=== PATIENT | female | born 1995 | race Caucasian/White ===

== ENCOUNTER → 2017-07-17 15:49 | Observation (INO) ==
--- NOTE | 2017-07-17 14:25 | OB/GYN Progress Note ---
Date of Encounter: 07/17/17 Time of Encounter: 14:40 - Assessment and Plan (1) Uterine contractions during Current Visit: Yes Status: Acute Plan: - Urine tox negative - NST monitoring - encourage hydration - labor evaluation, negative. Cervix FT thick and high, negative pooling, irregular contractions 10-20 minutes apart - education about sexual intercourse causing uterine irritability and vaginal streaking - appt made for visit 07/09 as patient is transferring to [facility] Discussed with Brandy Huang. Pt safe for discharge home, with labor precautions , when to return to triage or call provider. Pt verbalizes understanding. (2) NST (non-stress test) reactive Current Visit: Yes Status: Acute (3) 38 weeks gestation of Current Visit: Yes Status: Acute Subjective - Subjective Principal diagnosis: contractions Interval history: Sabrina is a 22 y/o female at 38 weeks with no complications presented to labor and delivery for contractions. Patient states contractions began at 2am this morning with frequency about 10-20 minutes apart. Patient did have intercourse last night and contractions began. She saw some bloody streaking this morning, no clots. Admits to some nausea. She denies being dehydrated, HAs, vomiting, changes in vision, leaking of fluid. Admits to 3 cig/ d. Normal movement. Antepartum ROS: vaginal bleeding, movement normal, contractions, no loss of fluid Objective - Vital Signs Vital Signs: Intake and Output 07/16/17 07/17/17 07/17/17 23:59 07:59 15:59 Other: Weight 90.6 kg Patient Weight 07/17/17 23:59 Weight 90.6 kg - Exam FHR: category 1 Auscultation: bilateral: normal Abdomen: Present: normal appearance, soft, gravid Uterus: Present: normal. Absent: firm, tenderness Cervical dilation: FT Cervix effacement: thick station: high Comments: Sterile speculum exam: negative for pooling, no source of bleeding
[2017-07-17 14:37] LABS: Amphetamine Screen,Urine Negative ng/mL (Cutoff=1000); Barbiturate Screen,Urine Negative ng/mL (Cutoff=200); Benzodiazepines Screen,Urine Negative ng/mL (Cutoff=200); Cannabinoid Screen,Urine Negative ng/mL (Cutoff = 50); Cocaine Screen,Urine Negative ng/mL (Cutoff= 300); Opiate Screen,Urine Negative ng/mL (Cutoff=300); Phencyclidine Screen,Urine Negative ng/mL (Cutoff=25)
== END | disposition home or self-care (01) ==
LOC: 1NENULAB

== ENCOUNTER 2017-07-20 12:09 | Inpatient (IN) ==
[2017-07-20] MEDS ORDERED: Oxytocin 20 units/ LR 1000 mL 20 UNIT/1,000 ML BAG IVC ONE (12:30)
[2017-07-20] MEDS ORDERED: Naloxone 0.4 MG/ML INJ IVP PRN ×2 (12:49→13:10)
[2017-07-20 13:10] LABS: Basophils # 0.1 K/mcL (0.0-0.2); Basophils % 0.3 %; Eosinophils # 0.1 K/mcL (0.0-0.6); Eosinophils % 0.4 %; Hematocrit 37.1 % (35.3-44.9); Hemoglobin 12.3 g/dL (11.5-15.4); Immature Granulocytes % 0.5 % (0-4); Immature Platelets 11.6 % (1.1-6.1); Lymphocytes % 20.8 %; Mean Corpuscular HGB Conc 33.2 g/dL (31.6-35.5); Mean Corpuscular Volume 90.5 fL (83.0-100.0); Mean Platelet Volume 12.2 fL (9.4-12.4); Monocytes # 0.6 K/mcL (0.0-1.3); Monocytes % 4.5 %; Neutrophils # 10.6 K/mcL (1.6-8.9); Platelet Count 233 K/mcL (140-400); Red Cell Distribution Width 13.7 % (11.5-14.5); Segmented Neutrophils % 73.5 %
[2017-07-20] MEDS ORDERED: Acetaminophen 325 MG TABLET PO PRN (13:10)
[2017-07-20] MEDS ORDERED: Oxytocin 20 units/ LR 1000 mL 20 UNIT/1,000 ML BAG IVC SCH (13:10)
--- NOTE | 2017-07-20 13:10 | OB/GYN History & Physical ---
Date of Encounter: 07/20/17 Time of Encounter: 12:42 Assessment and Plan (1) Uterine contractions Current visit: Yes Status: Acute Regular uterine contractions with SROM at 0900 today Admit to L&D Cervix 9cm per nursing GBS status unknown - swab obtained one day ago in office. Not enough time for PCN prophylaxis before delivery (2) 38 weeks gestation of Current visit: No Status: Acute History of Present Illness Chief complaint: Loss of Fluid HPI: Ms. Baez is a 22 year old female at 38w5d presenting to L&D with SROM at 0900 and regular uterine contractions. She reports good movement. Denies vaginal bleeding or vaginal discharge. This has been complicated by tobacco use. Denies other medical history. Denies other symptoms. She received part of her care in [place]. Blood type AB+ GBS unknown Rubella Immune Varicella Immune All other serologies Past Med Surg Social Fam HX - Past Medical History Medical history: no medical history Psychiatric history: no psych history - Past Surgical History Surgical History: no surgical history - Social History Smoking Status: Current some day smoker Packs per day: 0.5 Smokeless Tobacco Status: No Alcohol use: none Drug use: none - Family History Mother Adopted: No Family Member Ethnicity: Non- Living Status: Still Living Hx Family Cardiac Disorders: No Hx Family Respiratory Disorders: No Hx Family Cancer: No Hx Family GI Disorders: No Hx Family Endocrine Disorder: No Hx Family Neuromuscular Disorders: Yes (epilepsy) Hx Family Neurologic Disorders: No Hx Family HEENT Disorders: No Hx Family Autoimmune Disorders: No Hx Family Medical Disorders: Yes (seizures) Obstetrical History - Pregnancies : 3 Para: 2 Term: 1 : 1 Ab's: 0 Livin Medications and Allergies Tablet 1 tab PO DAILY 07/17/17 [History] 3 Allergy/AdvReac Type Severity Reaction Status Date / Time No Known Allergies Allergy Verified 07/06/15 00:58 Review of System OB All systems PM: reviewed and no additional remarkable complaints except as stated Exam - Constitutional Constitutional: well developed, well nourished, no acute distress - HEENT HEENT: Normocephaly, Mucus Membranes Moist - Abdomen Abdomen: Present: bowel sounds normal, gravid, non tender - Extremities Extremities exam: normal capillary refill, normal inspection - Vulva Vulva: bilateral: normal - Vagina Vagina: Present: normal moisture - Cervix Dilation: 9 (per nursing) - Uterus Uterus exam: Present: normal size, normal contour - Anus/Rectum Anus/Rectum: Present: normal perianal skin Results Result Diagrams: 07/20/17 12:50 All other labs normal. - VTE Reasons for not Prescribing Prophylaxis: Treatment not Indicated - Low risk for VTE - Attending Attestation I examined this patient and my medical decision-making was reviewed with the Resident Physician. I agree with the documented findings, disposition and treatment plan as described. Jesús Huang CNM
--- NOTE | 2017-07-20 13:10 | OB/GYN Procedure Note ---
Delivery - Delivery Date: 07/20/17 Provider: Elenita Huang (Assisted by Trenton Ferreira DO PGY-1) Intrapartum events: precipitous labor- <3hr Delivery induction: none Delivery monitor: external FHT, external uterine Anesthesia: none Estimated Blood Loss: 100 - Infant (s) A Delivery Date: 07/20/17 Delivery Time: 13:00 Presentation: vertex Position: OA Route of delivery: Gender: Female Viability: Viable Pounds: 6 Ounces: 2 Weight Gram: 2785 kg at 1 minute: 8 at 5 mins: 8 Shoulder Dystocia: not encountered Placenta: spontaneous Cord: 3 umbilical vessels - Repair Episiotomy: none Laceration Description: None - Complications Delivery complications: none Delivery comments: Patient pushed to spontaneous vaginal delivery of viable vigorous female in the direct OA position. Shoulders delivered easily. No nuchal, no meconium, and no shoulder dystocia encountered. Infant placed on maternal abdomen, warmed , dried, and stimulated. Apgars 8 and 8 at one and five minutes of age. Cord double clamped and cut when pulsations ceased. Placenta delivered spontaneously , appears grossly intact, with 3 vessel cord. Upon inspection, perineum intact. EBL 100cc. Infant and mother stable in recovery. Dr Stewart notified. - Disposition Mom disposition: stable in LDR [place] disposition: stable in LDR
[2017-07-20] MEDS: Ibuprofen 600 MG TABLET PO PRN ×2 (13:34→21:01)
[2017-07-21 04:09] LABS: Hematocrit 30.7 % (35.3-44.9); Hemoglobin 10.1 g/dL (11.5-15.4); Immature Granulocytes % 0.3 % (0-4); Immature Platelets 9.8 % (1.1-6.1); Lymphocytes % 20.5 %; Mean Corpuscular HGB Conc 32.9 g/dL (31.6-35.5); Mean Corpuscular Hemoglobin 30.1 pg (28.0-33.3); Mean Corpuscular Volume 91.4 fL (83.0-100.0); Mean Platelet Volume 12.5 fL (9.4-12.4); Platelet Count 177 K/mcL (140-400); Red Blood Count 3.36 M/mcL (3.82-4.97); Red Cell Distribution Width 13.8 % (11.5-14.5); Segmented Neutrophils % 73.5 %
[2017-07-21 04:10] LABS: Basophils % 0.2 %; Eosinophils # 0.1 K/mcL (0.0-0.6); Eosinophils % 0.5 %; Lymphocytes # 2.5 K/mcL (0.6-4.6); Monocytes # 0.6 K/mcL (0.0-1.3); Neutrophils # 8.9 K/mcL (1.6-8.9)
[2017-07-21] MEDS: Ibuprofen 600 MG TABLET PO PRN (04:12)
[2017-07-21] MEDS ORDERED: Albuterol 2.5 MG/3 ML NEBULIZER ONE (08:36)
[2017-07-21] MEDS ORDERED: Albuterol 2.5 MG/3 ML NEBULIZER IH ONE (08:44)
--- NOTE | 2017-07-21 08:44 | Anesthesia Evaluation PreOp ---
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 HX Other Medical History: Denies Any Significant HX Anesthesia History: Past Anesthesia : No Alcohol Use: none Drug use: none Medications and Allergies Tablet 1 tab PO DAILY 07/17/17 [History] 3 Allergy/AdvReac Type Severity Reaction Status Date / Time No Known Allergies Allergy Verified 07/06/15 00:58 - Meds/Allergy Pre-op Review Medications Reviewed: Yes Allergies Reviewed: Yes Beta Blockers on Current Med List: No Anesthesia Results - Labs 07/21/17 03:55 Anesthesia Exam O2 Sat Height 1.78 m Weight 85.275 kg Weight 85.5 kg Weight 90.1 kg O2 Sat by Pulse Oximetry 99 O2 Sat by Pulse Oximetry 98 O2 Sat by Pulse Oximetry 98 O2 Sat by Pulse Oximetry 99 O2 Sat by Pulse Oximetry 99 Vital Signs Temp Pulse Resp BP Pulse Ox 97.7 F 65 12 126/76 99 07/20/17 15:00 07/20/17 15:00 07/20/17 15:00 07/20/17 15:00 07/20/17 15:00 Vital Signs/O2 Sat, Most Current Temp Pulse Resp BP Pulse Ox 97.9 F 56 16 112/75 99 07/21/17 03:25 07/21/17 03:25 07/21/17 03:25 07/21/17 03:25 07/21/17 03:25 Height: 5'10'' Weight: 188# NPO (# of Hours): > 8 hrs Pain Scale: 0 Pain Scale Used: Numeric (1 - 10) - HEENT Pupil (Motor): Pupils equal, EOMI Mallampati: II Teeth: Normal Oral Opening: Greater than 3 - CONDITIONING ROOM WORKER LOC: Oriented CONDITIONING ROOM WORKER Motor: Normal RUE, Normal LUE, Normal RLE, Normal LLE, Normal Face CONDITIONING ROOM WORKER Sensory: Normal: RUE, LUE, RLE, LLE, Face - Cardiac Rhythm: Regular Murmur: None JVD: No Carotid Bruit: No - Pulmonary Breath Sounds: bilateral Clear Respiratory Effort: Symmetrical Anesthesia Assess/Plan ASA Score: 2 Modified Arun Scale for Level of Consciousness: Cooperative, oriented, and tranquil Anesthetic Plan: General Autologous Blood: Yes Monitoring Plan: Standard Monitors Recovery Plan: PACU
[2017-07-21] MEDS ORDERED: Prenatal Vit/FA 1 EACH TABLET PO SCH (09:00)
--- NOTE | 2017-07-21 09:50 | Discharge Summary ---
Date of Encounter: 07/21/17 Time of Encounter: 09:48 - Discharge Diagnosis (1) Vaginal delivery Priority: Primary Status: Acute Comments: Continue routine care discharge home today - Discharge Medications Prescriptions: Ibuprofen [Motrin] 600 mg PO Q6HR PRN #60 tablet PRN Reason: Cramping Home Medications: Tablet 1 tab PO DAILY 07/17/17 [History] Breast Pump [BREAST PUMP] 1 each .ROUTE AD #1 each 07/21/17 [Rx] Ibuprofen [Motrin] 600 mg PO Q6HR PRN #60 tablet 07/21/17 [Rx] Vit/FA 1 each PO DAILY tablet 07/21/17 [Rx] Allergies/Adverse Reactions: 3 Allergy/AdvReac Type Severity Reaction Status Date / Time No Known Allergies Allergy Verified 07/06/15 00:58 Data Procedures and tests throughout hospitalization: Laboratory Tests 07/20/17 07/21/17 12:50 03:55 WBC 14.4 H 12.1 H RBC 4.10 3.36 L Hgb 12.3 10.1 L D Hct 37.1 30.7 L MCV 90.5 91.4 MCH 30.0 30.1 MCHC 33.2 32.9 RDW 13.7 13.8 Plt Count 233 177 MPV 12.2 12.5 H Immature Gran % 0.5 0.3 Seg Neutrophils % 73.5 73.5 Lymphocytes % 20.8 20.5 Monocytes % 4.5 5.0 Eosinophils % 0.4 0.5 Basophils % 0.3 0.2 Neutrophils # 10.6 H 8.9 Lymphocytes # 3.0 2.5 Monocytes # 0.6 0.6 Eosinophils # 0.1 0.1 Basophils # 0.1 0.0 Immature Plt Fraction 11.6 H 9.8 H Labs on day of discharge: Labs from last 24 hours 07/21/17 07/20/17 03:55 12:50 WBC 12.1 H 14.4 H RBC 3.36 L 4.10 Hgb 10.1 L D 12.3 Hct 30.7 L 37.1 MCV 91.4 90.5 MCH 30.1 30.0 MCHC 32.9 33.2 RDW 13.8 13.7 Plt Count 177 233 MPV 12.5 H 12.2 Immature Gran % 0.3 0.5 Seg Neutrophils % 73.5 73.5 Lymphocytes % 20.5 20.8 Monocytes % 5.0 4.5 Eosinophils % 0.5 0.4 Basophils % 0.2 0.3 Neutrophils # 8.9 10.6 H Lymphocytes # 2.5 3.0 Monocytes # 0.6 0.6 Eosinophils # 0.1 0.1 Basophils # 0.0 0.1 Immature Plt Fraction 9.8 H 11.6 H Date of admission: 07/20/17 12:09 Primary care physician: PCP NONE Consults: 07/20/17 13:10 Consult to [facility] [CONS] Routine Comment: Vaginal delivery, consult needed Discharging clinician: Janki Reza Anticipated date of discharge: 07/21/17 - Patient Status Disposition: Home, Self-Care Condition: Good Functional capacity at discharge: independent ambulation - Discharge Instructions Follow Up With: NONE,PCP [Primary Care Provider] - Elenita Huang CNM [Advanced Practice Nurse] - - Diet and Activity Activity: increase activity as tolerated Diet: regular diet Hospital Course Reason for admission: active labor Delivery: Episiotomy: none Laceration: none Other procedures: none complications: none Discharge diagnosis: IUP at term delivered [place] baby: female (breast and bottle feeding) Time Attestation: Total time spent providing and/or coordinating discharge services: Time Spent: Less than 30 minutes Exam - Constitutional Vitals: Temp Pulse Resp BP Pulse Ox 97.9 F 70 16 112/75 99 07/21/17 03:25 07/21/17 04:00 07/21/17 04:00 07/21/17 03:25 07/21/17 03:25 General appearance IM: A&O X 3, pleasant, answers questions appropriately - Respiratory Respiratory exam: Present: CTAB - Cardiovascular Cardiovascular exam IM: Present: RRR, +S1, +S2 - GI/Abdominal GI/Abdominal exam IM: normal bowel sounds - Uterine Tone: Firm Uterus Position: 1 Finger Below Umbilicus, Midline - Extremities Exam Extremities exam IM: Present: full ROM, normal capillary refill, normal inspection - Neurological Exam Neurological exam: alert, oriented X3, reflexes normal
[2017-07-21 13:46] VITALS: BP 118/76
== END 2017-07-21 14:45 | disposition home or self-care (01) | DRG 775 ==
LOC: 1NENULAB → OBSVTOIN 12:09 → 1NENUOBS 15:16
PROVIDERS: ADMIT Family Medicine; ATTEND Advanced Practice Midwife

== ENCOUNTER → 2019-07-10 21:45 | Observation (INO) ==
[2019-07-10 18:04] LABS: Bilirubin,Urine Negative (Negative); Blood,Urine Negative (Negative); Clarity,Urine Cloudy (Clear); Color,Urine Yellow (Yellow); Glucose,Urine (UA) Normal (Normal); Ketones,Urine 40 mg/dL (Negative); Leukocyte Esterase,Urine Small (Negative); Nitrite,Urine Negative (Negative); Protein,Urine Negative (Neg-Trace); Specific Gravity,Urine 1.024 (1.010-1.025); Urobilinogen,Urine Normal (Normal)
[2019-07-10 18:11] LABS: Amphetamine Screen,Urine Negative ng/mL (Cutoff=1000); Barbiturate Screen,Urine Negative ng/mL (Cutoff=200); Benzodiazepines Screen,Urine Negative ng/mL (Cutoff=200); Cannabinoid Screen,Urine Negative ng/mL (Cutoff = 50); Cocaine Screen,Urine Negative ng/mL (Cutoff= 300); Opiate Screen,Urine Negative ng/mL (Cutoff=300); Phencyclidine Screen,Urine Negative ng/mL (Cutoff=25)
[2019-07-10 18:12] LABS: Bacteria,Urine Few per hpf (None-Few); Hyaline Casts,Urine None Seen per lpf (None-Few); Squamous Epithelial Cell,Urine Many per lpf (None-Few); WBC,Urine 15-30 per hpf (0-3)
== END | disposition home or self-care (01) ==
LOC: 1NENULAB
PROVIDERS: ADMIT Advanced Practice Midwife; ATTEND Advanced Practice Midwife

== ENCOUNTER 2019-07-20 14:23 | Inpatient (IN) ==
[2019-07-20 14:07] LABS: Basophils % 0.3 %; Eosinophils # 0.1 K/mcL (0.0-0.6); Eosinophils % 1.1 %; Hematocrit 33.1 % (35.3-44.9); Hemoglobin 11.3 g/dL (11.5-15.4); Immature Granulocytes % 0.6 % (0-4); Lymphocytes # 1.4 K/mcL (0.6-4.6); Mean Corpuscular HGB Conc 34.1 g/dL (31.6-35.5); Mean Corpuscular Hemoglobin 31.4 pg (28.0-33.3); Mean Corpuscular Volume 91.9 fL (83.0-100.0); Monocytes # 0.4 K/mcL (0.0-1.3); Monocytes % 4.9 %; Neutrophils # 6.9 K/mcL (1.6-8.9); Platelet Count 194 K/mcL (140-400); Segmented Neutrophils % 77.1 %
[~2019-07-20 14:23] MED LIST: *HR* Nalbuphine 10 MG/ML AMPUL IVP PRN; Azithromycin 500 MG in 0.9 % Sodium Chloride 250 ML IVPB ONE; Famotidine 20 MG/2 ML VIAL IVP PRN; Metoclopramide 10 MG/2 ML VIAL IVP PRN; Naloxone 0.4 MG/ML INJ IVP PRN; Ondansetron 4 MG/2 ML VIAL IVP PRN; Penicillin G Potassium 5,000,000 UNIT in 0.9 % Sodium Chloride Mini Bag 100 ML IVPB ONE; Ringers Solution, Lactated 1,000 ML IVC SCH
[2019-07-20 16:05] LABS: Amphetamine Screen,Urine Negative ng/mL (Cutoff=1000); Barbiturate Screen,Urine Negative ng/mL (Cutoff=200); Benzodiazepines Screen,Urine Negative ng/mL (Cutoff=200); Cannabinoid Screen,Urine Negative ng/mL (Cutoff = 50); Cocaine Screen,Urine Negative ng/mL (Cutoff= 300); Opiate Screen,Urine Negative ng/mL (Cutoff=300); Phencyclidine Screen,Urine Negative ng/mL (Cutoff=25)
[2019-07-20] MEDS ORDERED: Penicillin G Potassium 2,500,000 UNIT in 0.9 % Sodium Chloride 100 ML IVPB SCH (18:00)
[2019-07-20] MEDS ORDERED: Lidocaine 1% 20 ML MDV INFILT ONE (18:06)
[2019-07-20] MEDS ORDERED: Oxytocin 20 units/ LR 1000 mL 20 UNIT/1,000 ML BAG IVC ONE (18:40)
[2019-07-20] MEDS ORDERED: Ibuprofen 600 MG TABLET PO ONE (19:00)
[2019-07-20] MEDS ORDERED: Benzocaine/Menthol 56 GM AEROSOL SPRAY TP PRN (21:28)
[2019-07-20] MEDS ORDERED: Lanolin 7 G OINT...G. TP PRN (21:28)
[2019-07-20] MEDS ORDERED: Acetaminophen 325 MG TABLET PO PRN (21:28)
[2019-07-20] MEDS ORDERED: Oxytocin 20 units/ LR 1000 mL 20 UNIT/1,000 ML BAG IVC SCH (21:28)
[2019-07-21] MEDS: Ibuprofen 600 MG TABLET PO PRN (05:31)
[2019-07-21 06:36] LABS: Basophils % 0.3 %; Eosinophils # 0.2 K/mcL (0.0-0.6); Eosinophils % 1.5 %; Hematocrit 30.3 % (35.3-44.9); Hemoglobin 9.8 g/dL (11.5-15.4); Immature Granulocytes % 0.5 % (0-4); Lymphocytes # 1.8 K/mcL (0.6-4.6); Lymphocytes % 16.3 %; Mean Corpuscular HGB Conc 32.3 g/dL (31.6-35.5); Mean Corpuscular Hemoglobin 31.3 pg (28.0-33.3); Mean Corpuscular Volume 96.8 fL (83.0-100.0); Monocytes # 0.6 K/mcL (0.0-1.3); Monocytes % 5.7 %; Neutrophils # 8.2 K/mcL (1.6-8.9); Platelet Count 166 K/mcL (140-400); Red Blood Count 3.13 M/mcL (3.82-4.97); Red Cell Distribution Width 13.2 % (11.5-14.5); Segmented Neutrophils % 75.7 %; White Blood Count 10.8 K/mcL (4.3-11.1)
[2019-07-21] MEDS: metroNIDAZOLE 500 MG TABLET PO SCH ×2 (07:53→20:34)
[2019-07-21] MEDS: Prenatal Vit/FA 1 EACH TABLET PO SCH (07:53)
[2019-07-21] MEDS ORDERED: Lidocaine -MPF 2% 2 ML VIAL ONE (16:33)
[2019-07-21] MEDS ORDERED: *HR* Propofol 200 MG/20 ML VIAL IVP ONE (16:33)
[2019-07-21] MEDS ORDERED: *HR* FentaNYL (PF) 100 MCG/2 ML VIAL ONE (16:33)
[2019-07-21] MEDS ORDERED: Dexamethasone 4 MG/ML VIAL ONE (16:33)
[2019-07-21] MEDS ORDERED: Ondansetron 4 MG/2 ML VIAL ONE (16:33)
[2019-07-21] MEDS ORDERED: Ketorolac 30 MG/ML VIAL ONE (16:33)
[2019-07-21] MEDS ORDERED: *HR* HYDROmorphone (PF) 1 MG/ML SYRINGE IVP PRN (16:41)
[2019-07-21] MEDS ORDERED: *HR* OxyCODONE Immed Rel 5 MG TABLET PO PRN (16:41)
[2019-07-21] MEDS ORDERED: Ondansetron 4 MG/2 ML VIAL IVP ONE (16:41)
[2019-07-21] MEDS ORDERED: Acetaminophen IV 1,000 MG/100 ML INFUS..BTL ONE (16:54)
[2019-07-21] MEDS ORDERED: EPHEDrine 50 MG/ML VIAL ONE (17:02)
[2019-07-22] MEDS: Ibuprofen 600 MG TABLET PO PRN ×2 (00:38→08:46)
[2019-07-22 08:41] VITALS: BP 106/64
[2019-07-22] MEDS: metroNIDAZOLE 500 MG TABLET PO SCH (08:46)
[2019-07-22] MEDS: Prenatal Vit/FA 1 EACH TABLET PO SCH (08:46)
== END 2019-07-22 10:20 | disposition home or self-care (01) | DRG 541 ==
LOC: 1NENULAB → 1NENUOBS 21:27
PROVIDERS: ADMIT Registered Nurse; ATTEND Registered Nurse

== ENCOUNTER 2021-09-06 13:11 | Observation (INO) ==
[2021-09-06] MEDS ORDERED: 0.9 % Sodium Chloride 1,000 ML IV ONE ×2 (16:48→18:53)
[2021-09-06 17:06] LABS: Basophils % 0.3 %; Eosinophils % 0.3 %; Hematocrit 35.1 % (35.3-44.9); Hemoglobin 11.4 g/dL (11.5-15.4); Immature Granulocytes % 0.5 % (0-4); Lymphocytes # 0.8 K/mcL (0.6-4.6); Lymphocytes % 7.7 %; Mean Corpuscular HGB Conc 32.5 g/dL (31.6-35.5); Mean Corpuscular Hemoglobin 29.3 pg (28.0-33.3); Mean Corpuscular Volume 90.2 fL (83.0-100.0); Mean Platelet Volume 11.7 fL (9.4-12.4); Monocytes # 0.8 K/mcL (0.0-1.3); Monocytes % 7.9 %; Neutrophils # 8.7 K/mcL (1.6-8.9); Platelet Count 147 K/mcL (140-400); Red Blood Count 3.89 M/mcL (3.82-4.97); Red Cell Distribution Width 14.2 % (11.5-14.5); Segmented Neutrophils % 83.3 %; White Blood Count 10.4 K/mcL (4.3-11.1)
[2021-09-06 17:15] LABS: Bacteria,Urine Few per hpf (None-Few); Bilirubin,Urine Negative (Negative); Blood,Urine Moderate (Negative); Clarity,Urine Clear (Clear); Color,Urine Yellow (Yellow); Glucose,Urine (UA) Normal (Normal); Ketones,Urine 10 mg/dL (Negative); Leukocyte Esterase,Urine Small (Negative); Mucus,Urine Few per lpf (None-Few); Nitrite,Urine Negative (Negative); PH,Urine 8.5 pH Units (5.0-8.0); Protein,Urine 50 mg/dL (Neg-Trace); RBC,Urine 50-100 per hpf (0-3); Squamous Epithelial Cell,Urine Few per hpf (None-Few); WBC,Urine 30-50 per hpf (0-3)
[2021-09-06] MEDS ORDERED: cefTRIAXone 1,000 MG in Water for inj. (sterile) 10 ML IVP ONE (17:18)
[2021-09-06 17:28] LABS: Alanine Aminotransferase 10 Units/L (7-52); Albumin 4.1 g/dL (3.5-5.7); Albumin/Globulin Ratio 1.3 (1.1-2.2); Alkaline Phosphatase 44 Units/L (34-104); Aspartate Amino Transferase 10 Units/L (13-39); BUN/Creatinine Ratio 14 (6-26); Bilirubin,Total 1.2 mg/dL (0.3-1.0); Blood Urea Nitrogen 9 mg/dL (6-20); Carbon Dioxide 24 mEq/L (23-29); Chloride 102 mEq/L (98-107); Globulin 3.2 g/dL (2.4-3.5); Glucose 101 mg/dL (70-105); Lipase 8 Units/L (11-82); Osmolality,Calculated 275 (280-300); Potassium 3.6 mEq/L (3.5-5.1); Sodium 133 mEq/L (136-145); Total Protein 7.3 g/dL (6.4-8.9); Troponin I < 0.03 ng/mL (< 0.04); eGFR For African Americans > 60 (> 60); eGFR For Non-African Americans > 60 (> 60)
[2021-09-06 17:42] LABS: Thyroid Stimulating Hormone 2.218 mcIU/mL (0.340-5.600)
[2021-09-06] MEDS ORDERED: Isovue-370 500 ML BOTTLE IVP ONE ×2 (17:51→18:53)
[2021-09-06 17:57] LABS: Adenovirus Not Detected (Not Detect); Bordetella Pertussis Not Detected (Not Detect); Chlamydophila pneumoniae Not Detected (Not Detect); Coronavirus 229E Not Detected (Not Detect); Coronavirus HKU1 Not Detected (Not Detect); Coronavirus NL63 Not Detected (Not Detect); Coronavirus OC43 Not Detected (Not Detect); Human Metapneumovirus Not Detected (Not Detect); Human Rhinovirus/Enterovirus Not Detected (Not Detect); Influenza A Subtype 2009 H1 Not Detected (Not Detect); Influenza B Not Detected (Not Detect); Mycoplasma pneumoniae Not Detected (Not Detect); Parainfluenza Virus 1 Not Detected (Not Detect); Parainfluenza Virus 2 Not Detected (Not Detect); Parainfluenza Virus 3 Not Detected (Not Detect); Parainfluenza Virus 4 Not Detected (Not Detect); Respiratory Syncytial Virus Not Detected (Not Detect); SARS-CoV-2 Not Detected (Not Detect)
[2021-09-06] MEDS ORDERED: Ketorolac 30 MG/ML VIAL IVP ONE (18:53)
[2021-09-06] MEDS ORDERED: *HR* HYDROmorphone (PF) 1 MG/ML SYRINGE IVP ONE (20:24)
[2021-09-06] MEDS ORDERED: Melatonin 3 MG TABLET PO PRN (21:20)
[2021-09-06] MEDS ORDERED: Ondansetron 4 MG/2 ML VIAL IVP PRN (21:20)
[2021-09-06] MEDS ORDERED: *HR* Promethazine 25 MG/ML VIAL IM PRN (21:20)
[2021-09-06] MEDS ORDERED: Naloxone 0.4 MG/ML INJ IVP PRN (21:20)
[2021-09-06] MEDS ORDERED: *HR* HYDROcodone/Acet 5/325 mg TABLET PO PRN (21:20)
[2021-09-06] MEDS: Ringers Solution, Lactated 1,000 ML IVC SCH (23:49)
[2021-09-07] MEDS: *HR* Heparin 5,000 UNIT/ML VIAL SQ SCH ×3 (05:44→20:12)
[2021-09-07 05:54] LABS: Basophils % 0.4 %; Eosinophils % 1.2 %; Mean Corpuscular Hemoglobin 29.3 pg (28.0-33.3); Red Cell Distribution Width 14.3 % (11.5-14.5)
[2021-09-07 05:56] LABS: Eosinophils # 0.1 K/mcL (0.0-0.6); Hematocrit 30.6 % (35.3-44.9); Hemoglobin 9.8 g/dL (11.5-15.4); Immature Granulocytes % 0.4 % (0-4); Immature Platelets 8.2 % (1.1-6.1); Lymphocytes # 1.3 K/mcL (0.6-4.6); Lymphocytes % 15.8 %; Mean Corpuscular Volume 91.6 fL (83.0-100.0); Mean Platelet Volume 12.1 fL (9.4-12.4); Monocytes # 0.9 K/mcL (0.0-1.3); Monocytes % 11.4 %; Neutrophils # 5.7 K/mcL (1.6-8.9); Platelet Count 124 K/mcL (140-400); Red Blood Count 3.34 M/mcL (3.82-4.97); Segmented Neutrophils % 70.8 %; White Blood Count 8.1 K/mcL (4.3-11.1)
[2021-09-07 06:18] LABS: BUN/Creatinine Ratio 21 (6-26); Blood Urea Nitrogen 10 mg/dL (6-20); Carbon Dioxide 21 mEq/L (23-29); Chloride 107 mEq/L (98-107); Glucose 97 mg/dL (70-105); Magnesium 1.9 mg/dL (1.6-2.6); Osmolality,Calculated 279 (280-300); Potassium 3.7 mEq/L (3.5-5.1); Sodium 135 mEq/L (136-145); eGFR For African Americans > 60 (> 60); eGFR For Non-African Americans > 60 (> 60)
[2021-09-07] MEDS: cefTRIAXone 1,000 MG in Water for inj. (sterile) 10 ML IVP SCH (09:27)
[2021-09-07] MEDS: *HR* OxyCODONE Immed Rel 5 MG TABLET PO PRN ×2 (09:31→20:13)
[2021-09-07] MEDS: Ringers Solution, Lactated 1,000 ML IVC SCH (11:32)
[2021-09-07 12:49] LABS: Amphetamine Screen,Urine Negative ng/mL (Cutoff=1000); Barbiturate Screen,Urine Negative ng/mL (Cutoff=200); Benzodiazepines Screen,Urine Negative ng/mL (Cutoff=200); Cannabinoid Screen,Urine Positive ng/mL (Cutoff = 50); Cocaine Screen,Urine Negative ng/mL (Cutoff= 300); Opiate Screen,Urine Negative ng/mL (Cutoff=300); Phencyclidine Screen,Urine Negative ng/mL (Cutoff=25)
[2021-09-07] MEDS: Acetaminophen 325 MG TABLET PO PRN ×2 (15:14→20:14)
[2021-09-08 03:32] VITALS: O2SAT 100
[2021-09-08] MEDS: *HR* Heparin 5,000 UNIT/ML VIAL SQ SCH ×2 (06:18→13:59)
[2021-09-08] MEDS: *HR* OxyCODONE Immed Rel 5 MG TABLET PO PRN (06:35)
[2021-09-08 07:19] VITALS: BP 121/71; PULSE 108; TEMP 100.3
[2021-09-08] MEDS: cefTRIAXone 1,000 MG in Water for inj. (sterile) 10 ML IVP SCH (09:35)
[2021-09-08] MEDS: Acetaminophen 325 MG TABLET PO PRN (09:36)
== END 2021-09-08 14:44 | disposition home or self-care (01) ==
LOC: SUATTDRO → EMEROOARM 13:11 → 3ANU 13:11 → SUATTDRO 21:29 → 3ANU 22:20
PROVIDERS: ADMIT Internal Medicine; ATTEND Internal Medicine